=== PATIENT | female | born 1930 | race African-American/Black ===

== ENCOUNTER 2016-12-24 11:05 | Day surgery (SDC) | payer MEDICARE, OTHER ==
[~2016-12-24] VITALS: Ht 157.5 cm; Wt 62.7 kg
[2016-12-24] VITALS (10 sets, daily range): BP systolic 132–168; BP diastolic 61–86; PULSE 75–96; RESP 14–24; Ht 157.5 cm; Wt 62.7 kg
[2016-12-24 13:05] LABS: ADD SCAN DIFF NO
[2016-12-24 13:06] LABS: ABNORMAL IP MESSAGE 1; HEMATOCRIT 34.6 % (37.0-47.0); HEMOGLOBIN 10.7 g/dl (12.0-16.0); MEAN CORPUSCULAR HGB CONC 30.9 g/dl (32.0-37.0); MEAN CORPUSCULAR VOLUME 103.6 fl (82.0-101.0); MEAN PLATELET VOLUME 12.8 fl (7.4-10.4); PLATELET COUNT 184 10^3/UL (140-415); RED BLOOD COUNT 3.34 10^6/ul (4.20-5.40); RED CELL DISTRIBUTION WIDTH 20.2 % (11.5-14.5); WHITE BLOOD COUNT 7.6 10^3/ul (4.8-10.8)
[2016-12-24 13:16] LABS: INR 1.01; PROTIME 13.3 Sec (12.2-14.2)
[2016-12-24 13:17] LABS: PARTIAL THROMBOPLASTIN TIME 28.6 Sec (25.0-35.0)
[2016-12-24 13:18] LABS: POTASSIUM 4.7 mmol/L (3.5-5.1)
[2016-12-24 13:22] LABS: CALCIUM 8.9 mg/dl (8.4-10.2); CREATININE 0.65 mg/dl (0.44-1.00)
[2016-12-24] MEDS ORDERED: ALEN40TA2 PO (13:35)
[2016-12-24] MEDS ORDERED: CARV3.1260 PO (13:35)
[2016-12-24] MEDS ORDERED: ATOR10TA65 PO (13:35)
[2016-12-24] MEDS ORDERED: CLON0.2T5 PO (13:35)
[2016-12-24] MEDS ORDERED: ASPI81TA3 PO (13:35)
--- NOTE | 2016-12-24 13:39 | RADRPT ---
PROCEDURE: XR Chest. CLINICAL INDICATION: Shortness of breath. TECHNIQUE: Single frontal view. COMPARISON: None. FINDINGS: There is mild atelectasis or scarring at the right lung base. The lungs are otherwise clear. The heart is mildly enlarged. There is calcification in the aorta consistent with atherosclerosis. There is no pleural effusion. There is no pneumothorax. IMPRESSION: 1. Mild scarring or atelectasis at the right lung base. 2. Mild cardiomegaly. 3. Atherosclerosis. RPTAT: QQ .Oli Gutierrez MD, MD Date Time Electronically viewed and signed by .Oli Gutierrez MD, MD on 12/24/2016 13:39 .R/
[2016-12-24] MEDS ORDERED: FENT1PAT TD (13:40)
[2016-12-24] MEDS ORDERED: CRAN450C PO (13:40)
[2016-12-24] MEDS ORDERED: FEXO30OR4 PO (13:40)
[2016-12-24] MEDS ORDERED: CLOP75TA28 PO (13:40)
[2016-12-24] MEDS ORDERED: MELA3TAB29 PO (13:40)
[2016-12-24] MEDS ORDERED: ZINC220C11 GTB (13:40)
[2016-12-24] MEDS ORDERED: DOCU100P MC (13:40)
[2016-12-24] MEDS ORDERED: LANT3I SC (13:40)
[2016-12-24] MEDS ORDERED: METF500T PO (13:40)
[2016-12-24] MEDS ORDERED: IODIXANOL LOCM 100 ML BTL ONE (14:08)
[2016-12-24] MEDS ORDERED: HEPARIN 1000 UNITS/NS (A-LINE) 1,000 ML ONE (14:08)
[2016-12-24] MEDS ORDERED: MIDAZOLAM 1 MG/ML 2 ML INJ ONE (14:08)
[2016-12-24] MEDS ORDERED: LIDOCAINE 1% (MDV) 20 ML INJ ONE (14:08)
[2016-12-24] MEDS ORDERED: FENTAnyl 50 MCG/ML VIAL ONE (14:08)
[2016-12-24 14:41] LABS: BASOPHIL # 0.1 10^3/ul (0.0-0.1); EOSINOPHILS # 2.9 10^3/ul (0.0-0.5); LYMPHOCYTES # 1.9 10^3/ul (0.8-2.9); MONOCYTE # 0.4 10^3/ul (0.3-0.9); NEUTROPHIL # 1.6 10^3/ul (1.6-7.5)
[2016-12-24] MEDS ORDERED: SOD CHLORIDE 0.9% 500 ML ONE (14:53)
[2016-12-24] MEDS ORDERED: IODIXANOL LOCM 50 ML BTL ONE (14:53)
[2016-12-24] MEDS ORDERED: HEPARIN 1000 UNITS/ML 10 ML INJ ONE (14:53)
--- NOTE | 2016-12-24 16:42 | OPR ---
Date/Time of Note Date/Time of Note DATE: 12/24/16 TIME: 16:41 Operative Report Preoperative Diagnosis PVD Postoperative Diagnosis PVD Operation Performed Atherectomy and angioplasty LLE, SFA and [place] artery Surgeon: KAMERON YORK MD Anesthesia: MAC Estimated Blood Loss: none Complications: None Pt Condition Post Procedure: stable Disposition: PACU KAMERON YORK MD Dec 24, 2016 16:42
[2016-12-24] MEDS ORDERED: HYDROCODONE/APAP (7.5/325) TAB GTB PRN (18:00)
--- NOTE | 2016-12-25 07:34 | OPR ---
DATE OF OPERATION: PREOPERATIVE DIAGNOSIS: Left lower extremity foot ulcer. POSTOPERATIVE DIAGNOSIS: Left lower extremity foot ulcer. OPERATION PERFORMED: 1. Atherectomy, left peroneal artery. 2. Atherectomy left superficial femoral artery. 3. Balloon angioplasty, left peroneal artery 2 x 100 mm balloon. 4. Angioplasty, left superficial femoral artery, 5 x 40 mm balloon. 5. Third order degree angiogram, left lower extremity. 6. Catheter introduction into the abdominal aorta. 7. Abdominal aortogram. 8. Interpretation and supervision of the abdominal aortogram and lower extremity angiogram and efrain oplasties. 9. Ultrasound guidance into the right femoral artery. SURGEON: Kameron Ariza MD ANESTHESIA: Local plus IV sedation. CONSENT: Risks, benefits, complications, alternative therapies explained to the patient and the [facility], consent obtained. OPERATIVE TECHNIQUE: The patient was placed in supine position, prepped, and draped in usual steril e fashion. Lidocaine 1% was used throughout the operation for local anesthesia. A time-out was scott led. Access was gained in the right common femoral artery. Guidewire was advanced through without any difficulty. Subcutaneous tissues dilated, and I started. Under ultrasonic guidance, access was gained in the right common femoral artery. Guidewire was adva nced through without any difficulties. A [employer] wire was advanced into the abdominal aorta. A 5-F rench sheath advanced and a rim catheter advanced into the abdominal aorta. Abdominal aortogram was done. Interpretation and supervision of abdominal aortogram revealed: 1. Aorta normal. 2. On the right side, right common iliac artery normal. 3. Right internal iliac artery normal. 4. Right external iliac artery normal. 5. Right common femoral artery normal. 6. The origin of the right superficial femoral artery and profunda normal. 7. On the left side, the left common iliac artery normal. 8. External iliac artery normal. 9. Internal iliac artery normal. 10. Common femoral normal. 11. Superficial femoral artery had multiple lesions about 80% stenosis proximally, less than 20% th roughout its course. 12. The popliteal artery had tandem lesions, which were less than 30%. Trifurcation was grossly no rmal. Anterior tibial artery was a subtotal. Posterior tibial totally 100% occluded. Peroneal was subtotal in its beginning course and then 100% occluded distally with collaterals feeding into a ve ry small posterior tibial artery and a very small anterior tibial artery. The patient was given 5000 units of IV heparin. The sheath was exchanged to a long 6 sheath. The 0 .014 wire was passed all the way as much we could into the peritoneal artery, which was the level of the mid leg. Atherectomy of the peroneal artery was then performed. Atherectomy of the superficia l femoral artery was performed. Angioplasty of the peroneal artery was performed using a 2 x 100 mm balloon. Angioplasty of superficial femoral artery was performed using a 5 x 40 mm balloon. The f inal angiogram revealed peroneal artery open; however, the distal vessels were in spasm. Angiogram of the superficial femoral artery revealed less than 10% stenosis in the previously stenosed area. Hardware was then removed. The sheath was exchanged to a short 6-Malay sheath. The patient tolera danuta procedure well. Dictated By: KAMERON DANIEL/ALBERT Conf#: [id number] DID#: [id number]
--- NOTE | 2016-12-28 15:14 | RADRPT ---
Vent Rate: 0 bpm RR Interval: 0 msec MN Interval: 0 msec QRS Duration: 0 msec QT Interval: 0 msec QTC Interval: 0 msec P-R-T [place]: 0 - 0 - 0 degrees Electronically Signed By: Jovani Pierce [id number]
== END 2016-12-24 20:06 ==
LOC: SDS 11:05
PROVIDERS: ATTEND Thoracic Surgery (Cardiothoracic Vascular Surgery)
DX: I73.9 Peripheral vascular disease, unspecified (principal); L97.529 Non-pressure chronic ulcer of other part of left foot with unspecified severity
CPT/HCPCS: 37225; 37229; 71010; 80048; 82962; 85025; 85610; 85730; 93005; C1714; C1725; C1769; C1887; C1894; J1644; J2250; J3010; J7040; Q9967